=== PATIENT | female | born 1965 | race Two or more races ===

== ENCOUNTER 2017-03-20 18:43 | Emergency (ER) | payer OTHER ==
[~2017-03-20] VITALS: Ht 167.6 cm; Wt 77.1 kg
[~2017-03-20 18:43] MED LIST: ESCI5TAB PO
--- NOTE | 2017-03-20 18:52 | NUR ---
bibra from street/ in her car due to mid sternal chestpain worst during inspiratory that started 2 days ago, worst today. Patient is aao3, appears in no apparent distress, respiration even and unlabored. Patient's skin is warm to touch and non diaphoretic. Pt afebrile. Patient with iv on lac 20, intact, patent, covered with dry dressing. Connected pt to tele monitor. Lora hart
[2017-03-20] MEDS ORDERED: KETOROLAC TROMETHAMINE 15 MG/ML VIAL ONE (19:15)
[2017-03-20 19:21] LABS: BASOPHILS # (AUTO) 0.1 /CMM (0.0-0.2); BASOPHILS % (AUTO) 1.5 % (0.0-2.0); EOSINOPHILS # (AUTO) 0.2 /CMM (0.0-0.7); EOSINOPHILS % (AUTO) 1.8 % (0.0-6.0); HEMATOCRIT 43 % (33-45); HEMOGLOBIN 14.5 g/dL (11.5-14.8); LYMPHOCYTES # (AUTO) 2.2 /CMM (0.8-4.8); LYMPHOCYTES % (AUTO) 23.3 % (20.0-44.0); MEAN CORPUSCULAR HEMOGLOBIN 29 PG (26.0-33.0); MEAN CORPUSCULAR HGB CONC 34 g/dl (31.0-36.0); MEAN CORPUSCULAR VOLUME 86 fL (82-100); MONOCYTES # (AUTO) 0.4 /CMM (0.1-1.30); MONOCYTES % (AUTO) 4.6 % (2.0-12.0); NEUTROPHILS # (AUTO) 6.5 /CMM (1.8-8.9); NEUTROPHILS % (AUTO) 68.8 % (43.0-81.0); PLATELET COUNT (AUTO) 202 /CMM (150-450); RDW COEFFICIENT OF VARIATION 12.6 (11.5-15.0); RED BLOOD CELL COUNT(AUTO) 4.99 MIL/uL (4.0-5.2); WHITE BLOOD COUNT (AUTO) 9.4 K/uL (4.3-11.0)
--- NOTE | 2017-03-20 19:25 | NUR ---
XOCHITL TECH AT BEDSIDE FOR GALLBLADDER XOCHITL.
[2017-03-20] MEDS ORDERED: KETOROLAC TROMETHAMINE INJ 30 MG/ML VIAL IV ONE (19:30)
[2017-03-20 19:31] LABS: APPEARANCE,URINE Clear (CLEAR); BILIRUBIN,URINE Negative (NEGATIVE); BLOOD, URINE Small Ery/uL (NEGATIVE); COLOR,URINE Yellow (YELLOW); KETONES,URINE Negative (NEGATIVE); LEUKOCYTE ESTERASE ,URINE Negative (NEGATIVE); NITRITE, URINE Negative (NEGATIVE); PROTEIN,URINE Negative (NEGATIVE); UGLUCOSE Negative (NEGATIVE); UROBILINOGEN,URINE 0.2 EU/dL (0.2)
[2017-03-20 19:43] LABS: CALCIUM, SERUM 9.2 mg/dL (8.5-10.1); CREATININE 0.8 mg/dL (0.6-1.3); POTASSIUM 3.6 mmol/L (3.5-5.1)
[2017-03-20 19:47] LABS: INR 0.96 (0.87-1.13)
[2017-03-20 19:49] LABS: ALBUMIN 4.1 g/dL (3.4-5.0); BILIRUBIN,TOTAL 0.2 mg/dL (0.2-1.0)
[2017-03-20 19:54] LABS: ADD URINE CULTURE NO; BACTERIA,URINE None seen /HPF (None Seen); SQUAMOUS EPITHELIAL CELL,UR Moderate /HPF (None Seen); WBC,URINE 0-2 /HPF (0-3)
[2017-03-20] MEDS ORDERED: MORPHINE SULFATE INJ 4 MG/ML DISP.SYRIN ONE (20:24)
[2017-03-20] MEDS ORDERED: ONDANSETRON HCL/PF 4 MG/2 ML VIAL ONE (20:24)
[2017-03-20] MEDS ORDERED: ONDANSETRON HCL/PF - ER 4 MG/2 ML VIAL IV ONE (20:30)
[2017-03-20] MEDS ORDERED: MORPHINE SULFATE INJ 2 MG/ML DISP.SYRIN IV ONE (20:30)
--- NOTE | 2017-03-20 20:56 | NUR ---
IV removed. Catheter intact and site benign. Pressure and 4x4 applied to site. No bleeding noted. ambulatory with a steady gait noted. pt aaox4 no acute distress noted, resp even and unlabored. advice pt not to drive or operate any machinery due to pt was given morphine. pt verbalize understanding. pt family member at bedside to take pt home.
[2017-03-20 20:58] VITALS: BP 147/92
== END 2017-03-20 20:59 | disposition home or self-care (01) ==
LOC: ER 18:44
DX: S23.3XXA Sprain of ligaments of thoracic spine, initial encounter (principal); F32.9 Major depressive disorder, single episode, unspecified; X58.XXXA Exposure to other specified factors, initial encounter; Y92.89 Other specified places as the place of occurrence of the external cause; Y93.89 Activity, other specified; Y99.8 Other external cause status
CPT/HCPCS: 36415; 76705-TC; 80048-TC; 80076-TC; 81000-TC; 83690-TC; 85025-TC; 85730-TC; A4606; J1885; J2270; J2405; Z7610

== ENCOUNTER 2017-07-03 19:41 | Emergency (ER) | payer OTHER ==
[~2017-07-03] VITALS: Ht 167.6 cm; Wt 79.4 kg
[2017-07-03 19:41] VITALS: BP 146/79
== END 2017-07-03 20:51 | disposition home or self-care (01) ==
LOC: ER 19:42
DX: M25.511 Pain in right shoulder (principal); F32.9 Major depressive disorder, single episode, unspecified; W19.XXXA Unspecified fall, initial encounter; Y93.89 Activity, other specified; Y92.89 Other specified places as the place of occurrence of the external cause; Y99.8 Other external cause status
CPT/HCPCS: 73030; 99284; A4606; Z7610

== ENCOUNTER 2018-03-18 08:38 | Emergency (ER) | payer OTHER ==
[~2018-03-18] VITALS: Ht 167.6 cm; Wt 78.0 kg
[2018-03-18 08:38] VITALS: BP 149/92
[2018-03-18] MEDS ORDERED: predniSONE 20 MG TABLET ONE (09:15)
[2018-03-18] MEDS ORDERED: predniSONE 20 MG TABLET PO ONE (09:30)
== END 2018-03-18 09:18 | disposition home or self-care (01) ==
LOC: ER 08:40
DX: L50.9 Urticaria, unspecified (principal); F32.9 Major depressive disorder, single episode, unspecified; D21.9 Benign neoplasm of connective and other soft tissue, unspecified; Z60.2 Problems related to living alone
CPT/HCPCS: 99282; A4606; J7512; Z7610

== ENCOUNTER 2018-07-28 14:28 | Emergency (ER) | payer OTHER ==
[~2018-07-28] VITALS: Ht 177.8 cm; Wt 68.0 kg
--- NOTE | 2018-07-28 14:35 | NUR ---
MID STERNAL CHEST PAIN, SHARP NON RADIATING. NAD NOTED, VSS, RESP EVEN AND UNLABORED, PT WAS PUT ON MONITOR, WAITING FOR MD ROSENBERG.
[2018-07-28] MEDS ORDERED: MAG HYDROX/AL HYDROX/SIMETH 30 ML UDC ONE (15:16)
[2018-07-28] MEDS ORDERED: LORAZEPAM INJ 2 MG/ML VIAL ONE (15:17)
[2018-07-28] MEDS ORDERED: MAG HYDROX/AL HYDROX/SIMETH 30 ML UDC PO ONE (15:30)
[2018-07-28] MEDS ORDERED: LORAZEPAM INJ 2 MG/ML VIAL IV ONE (15:30)
[2018-07-28 15:45] LABS: INR 0.91 (0.85-1.15)
[2018-07-28 15:50] LABS: CALCIUM, SERUM 9.2 mg/dL (8.5-10.1); CREATININE 0.8 mg/dL (0.6-1.3); POTASSIUM 3.8 mmol/L (3.5-5.1)
[2018-07-28 15:52] LABS: TROPONIN I < 0.017 ng/mL (0.00-0.056)
[2018-07-28 15:54] LABS: ALANINE AMINOTRANSFERASE 64 U/L (12-78); ALBUMIN 4.1 g/dL (3.4-5.0); ALKALINE PHOSPHATASE 137 U/L (46-116); ASPARTATE AMINOTRANSFERASE 33 U/L (15-37); BILIRUBIN,DIRECT 0.1 mg/dL (0.0-0.2); BILIRUBIN,TOTAL 0.4 mg/dL (0.2-1.0); TOTAL PROTEIN, SERUM 7.8 g/dL (6.4-8.2)
[2018-07-28 15:59] LABS: BASOPHILS % (AUTO) 0.3 % (0.0-2.0); EOSINOPHILS % (AUTO) 2.3 % (0.0-6.0); HEMATOCRIT 43 % (33-45); HEMOGLOBIN 13.9 g/dL (11.5-14.8); LYMPHOCYTES # (AUTO) 1.5 /CMM (0.8-4.8); LYMPHOCYTES % (AUTO) 17.6 % (20.0-44.0); MEAN CORPUSCULAR HEMOGLOBIN 28 PG (26.0-33.0); MEAN CORPUSCULAR HGB CONC 33 g/dl (31.0-36.0); MEAN CORPUSCULAR VOLUME 86 fL (82-100); MONOCYTES # (AUTO) 0.4 /CMM (0.1-1.30); MONOCYTES % (AUTO) 4.9 % (2.0-12.0); NEUTROPHILS # (AUTO) 6.5 /CMM (1.8-8.9); NEUTROPHILS % (AUTO) 74.9 % (43.0-81.0); PLATELET COUNT (AUTO) 224 /CMM (150-450); RDW COEFFICIENT OF VARIATION 14.3 (11.5-15.0); RED BLOOD CELL COUNT(AUTO) 4.97 MIL/uL (4.0-5.2); WHITE BLOOD COUNT (AUTO) 8.6 K/uL (4.3-11.0)
[2018-07-28 17:15] VITALS: BP 128/75
--- NOTE | 2018-07-28 17:16 | NUR ---
Patient discharged to home in stable condition. Written and verbal after care instructions given. Patient verbalizes understanding of instruction.IV removed. Catheter intact and site benign. Pressure and 4x4 applied to site. No bleeding noted.
== END 2018-07-28 17:17 | disposition home or self-care (01) ==
LOC: ER 14:34
DX: M62.830 Muscle spasm of back (principal); R74.8 Abnormal levels of other serum enzymes; I10 Essential (primary) hypertension; E78.00 Pure hypercholesterolemia, unspecified; F32.9 Major depressive disorder, single episode, unspecified; Z60.2 Problems related to living alone
CPT/HCPCS: 36415; 71045; 80048; 80076; 84484; 85025; 85730; 93005; 96374; 99285; A4606; J2060; Z7610

== ENCOUNTER 2018-07-29 07:31 | Emergency (ER) | payer OTHER ==
[~2018-07-29] VITALS: Ht 167.6 cm; Wt 79.4 kg
--- NOTE | 2018-07-29 07:45 | NUR ---
BIB RA C/O EPIGASTRIC PAIN,6/10 SHARP, NON RADIATING X 3 DAYS, WORSENING WHEN CHANGING POSTION. PATIENT IS AWAKE AND ALERT. NOT IN DISTRESS, SKIN IS WARM TO TOUCH AND NON DIAPHORETIC, PATIENT IS AFEBRILE.VSS
[2018-07-29] MEDS ORDERED: MORPHINE SULFATE INJ 4 MG/ML DISP.SYRIN ONE (07:53)
[2018-07-29] MEDS ORDERED: METOCLOPRAMIDE HCL 10 MG/2 ML VIAL ONE (07:53)
[2018-07-29] MEDS ORDERED: FAMOTIDINE/PF INJ 20 MG/2 ML VIAL IV ONE (07:54)
[2018-07-29] MEDS ORDERED: NIFEdipine (10MG) 10 MG CAPSULE ONE (07:54)
--- NOTE | 2018-07-29 07:55 | NUR ---
Line started on L ac g 20, blood drawn from line and sent to lab
[2018-07-29] MEDS: FAMOTIDINE/PF INJ 20 MG/2 ML VIAL IV ONE (07:57)
[2018-07-29] MEDS: MORPHINE SULFATE INJ 2 MG/ML DISP.SYRIN IV ONE (07:57)
[2018-07-29] MEDS: METOCLOPRAMIDE HCL 10 MG/2 ML VIAL IV ONE (07:57)
[2018-07-29] MEDS: IV NS 0.9% 1,000 ML BAG IV ONE (07:57)
[2018-07-29] MEDS: NIFEdipine (10MG) 10 MG CAPSULE PO ONE (07:58)
--- NOTE | 2018-07-29 08:00 | NUR ---
MEDICATED PATIENT ORDERED
[2018-07-29 08:01] LABS: BASOPHILS # (AUTO) 0.1 /CMM (0.0-0.2); BASOPHILS % (AUTO) 0.8 % (0.0-2.0); EOSINOPHILS % (AUTO) 2.9 % (0.0-6.0); HEMATOCRIT 40 % (33-45); HEMOGLOBIN 13.7 g/dL (11.5-14.8); LYMPHOCYTES # (AUTO) 1.3 /CMM (0.8-4.8); LYMPHOCYTES % (AUTO) 18.8 % (20.0-44.0); MEAN CORPUSCULAR HEMOGLOBIN 29 PG (26.0-33.0); MEAN CORPUSCULAR HGB CONC 34 g/dl (31.0-36.0); MEAN CORPUSCULAR VOLUME 86 fL (82-100); MONOCYTES # (AUTO) 0.5 /CMM (0.1-1.30); MONOCYTES % (AUTO) 6.6 % (2.0-12.0); NEUTROPHILS % (AUTO) 70.9 % (43.0-81.0); PLATELET COUNT (AUTO) 179 /CMM (150-450); RDW COEFFICIENT OF VARIATION 14.1 (11.5-15.0); RED BLOOD CELL COUNT(AUTO) 4.69 MIL/uL (4.0-5.2); WHITE BLOOD COUNT (AUTO) 7.1 K/uL (4.3-11.0)
[2018-07-29 08:11] LABS: CALCIUM, SERUM 9.2 mg/dL (8.5-10.1); CARBON DIOXIDE 25 mmol/L (21-32); CHLORIDE 104 mmol/L (98-107); CREATININE 0.8 mg/dL (0.6-1.3); GLUCOSE 118 mg/dL (74-106); POTASSIUM 3.8 mmol/L (3.5-5.1); SODIUM SERUM 141 mmol/L (136-145); UREA NITROGEN, BLOOD 10 mg/dL (7-18)
[2018-07-29 08:16] LABS: ALANINE AMINOTRANSFERASE 60 U/L (12-78); ALBUMIN 3.8 g/dL (3.4-5.0); ALKALINE PHOSPHATASE 124 U/L (46-116); ASPARTATE AMINOTRANSFERASE 29 U/L (15-37); BILIRUBIN,DIRECT 0.1 mg/dL (0.0-0.2); BILIRUBIN,TOTAL 0.5 mg/dL (0.2-1.0); TOTAL PROTEIN, SERUM 7.7 g/dL (6.4-8.2)
[2018-07-29 08:19] LABS: TROPONIN I < 0.017 ng/mL (0.00-0.056)
--- NOTE | 2018-07-29 08:39 | NUR ---
Pt states that epigastric spasms and pain have decreased with medication, although return when changing position.
--- NOTE | 2018-07-29 08:56 | NUR ---
PATIENT WAS TAKEN TO CT
[2018-07-29] MEDS ORDERED: CT SWABBABLE VALVE TRANS SET 1 EA INFUS.SET MC ONE (09:04)
[2018-07-29] MEDS ORDERED: IOHEXOL-350 100 ML VIAL IV ONE (09:04)
[2018-07-29] MEDS ORDERED: IV NS 0.9% 250 ML IV ONE (09:04)
[2018-07-29 09:58] VITALS: BP 133/68
--- NOTE | 2018-07-29 09:59 | NUR ---
IV removed. Catheter intact and site benign. Pressure and 4x4 applied to site. No bleeding noted.Patient discharged to home in stable condition. Written and verbal after care instructions given. Patient verbalizes understanding of instruction.
== END 2018-07-29 10:05 | disposition home or self-care (01) ==
LOC: ER 07:32
DX: R10.13 Epigastric pain (principal); I10 Essential (primary) hypertension; F32.9 Major depressive disorder, single episode, unspecified; F41.9 Anxiety disorder, unspecified; Z60.2 Problems related to living alone; Z79.899 Other long term (current) drug therapy
CPT/HCPCS: 36415; 80048-TC; 80076-TC; 83690-TC; 84484-TC; 85025-TC; 85378-TC; A4606; J2270; J2765; J3490; J7030; J7050; Q9967; Z7610

== ENCOUNTER 2019-01-04 17:38 | Emergency (ER) | payer OTHER ==
[~2019-01-04] VITALS: Ht 167.6 cm; Wt 78.0 kg
--- NOTE | 2019-01-04 17:47 | NUR ---
BIB SELF W C/O ABD SHARP PAIN, NON RADIATING x 3 DAYS, PS 7/10, TO ER BED 1, HOOKED TO MONITOR, AWAITING MD ROSENBERG
--- NOTE | 2019-01-04 18:08 | NUR ---
DR ROWLEY AT BEDSIDE
[2019-01-04 18:19] LABS: APPEARANCE,URINE Slightly Cloudy (CLEAR); BILIRUBIN,URINE Negative (NEGATIVE); BLOOD, URINE Small Ery/uL (NEGATIVE); COLOR,URINE Yellow (YELLOW); KETONES,URINE Negative (NEGATIVE); LEUKOCYTE ESTERASE ,URINE Small (NEGATIVE); NITRITE, URINE Negative (NEGATIVE); PH,URINE 6.5 (5.0-8.0); PROTEIN,URINE Negative (NEGATIVE); UGLUCOSE Negative (NEGATIVE); UROBILINOGEN,URINE 0.2 EU/dL (0.2)
--- NOTE | 2019-01-04 18:19 | NUR ---
OUT FOR CT ABDOMEN PELVIS
[2019-01-04 18:29] LABS: BACTERIA,URINE 1+ /HPF (None Seen); SQUAMOUS EPITHELIAL CELL,UR Few /HPF (None Seen)
[2019-01-04 18:47] LABS: BASOPHILS # (AUTO) 0.1 /CMM (0.0-0.2); BASOPHILS % (AUTO) 1.1 % (0.0-2.0); EOSINOPHILS % (AUTO) 1.7 % (0.0-6.0); HEMATOCRIT 40 % (33-45); HEMOGLOBIN 13.8 g/dL (11.5-14.8); LYMPHOCYTES # (AUTO) 2.3 /CMM (0.8-4.8); LYMPHOCYTES % (AUTO) 30.3 % (20.0-44.0); MEAN CORPUSCULAR HGB CONC 35 g/dl (31.0-36.0); MEAN CORPUSCULAR VOLUME 85 fL (82-100); MONOCYTES # (AUTO) 0.6 /CMM (0.1-1.30); MONOCYTES % (AUTO) 7.4 % (2.0-12.0); NEUTROPHILS # (AUTO) 4.6 /CMM (1.8-8.9); NEUTROPHILS % (AUTO) 59.5 % (43.0-81.0); PLATELET COUNT (AUTO) 177 /CMM (150-450); RED BLOOD CELL COUNT(AUTO) 4.65 MIL/uL (4.0-5.2); WHITE BLOOD COUNT (AUTO) 7.7 K/uL (4.3-11.0)
[2019-01-04 19:00] LABS: ALBUMIN 3.9 g/dL (3.4-5.0); BILIRUBIN,DIRECT 0.1 mg/dL (0.0-0.2); BILIRUBIN,TOTAL 0.3 mg/dL (0.2-1.0); CALCIUM, SERUM 9.2 mg/dL (8.5-10.1); CREATININE 0.8 mg/dL (0.6-1.3); TOTAL PROTEIN, SERUM 7.4 g/dL (6.4-8.2)
--- NOTE | 2019-01-04 19:20 | NUR ---
REPORT GIVEN TO BEKAH GUZMAN FOR OSCAR
[2019-01-04 19:43] VITALS: BP 133/78
== END 2019-01-04 19:44 | disposition home or self-care (01) ==
LOC: ER 17:38
DX: N39.0 Urinary tract infection, site not specified (principal); I10 Essential (primary) hypertension; F32.9 Major depressive disorder, single episode, unspecified; F41.9 Anxiety disorder, unspecified; Z90.710 Acquired absence of both cervix and uterus; Z60.2 Problems related to living alone; Z79.899 Other long term (current) drug therapy
CPT/HCPCS: 36415; 80048-TC; 80076-TC; 81000-TC; 83690-TC; 85025-TC; 87086-TC